=== PATIENT | female | born 1950 | race Caucasian/White ===

== ENCOUNTER 2017-04-21 11:48 | Emergency (ER) | payer MEDICARE ==
[~2017-04-21] VITALS: Ht 152.4 cm; Wt 85.5 kg
[2017-04-21 11:50] VITALS: Ht 152.4 cm; Wt 85.5 kg
[2017-04-21] MEDS ORDERED: TRAM50TA2 PO (12:16)
--- NOTE | 2017-04-21 13:38 | ERD ---
ER Documentation Chief Complaint Date/Time DATE: 04/21/17 TIME: 13:36 Chief Complaint right knee pain and left foot pain hx arthritis HPI Patient is a 66-year-old female with arthritis who presents with left-sided ankle pain and right-sided knee pain. She also has left-sided knee pain but the right is worse than the left. The patient is a history of arthritis and says that she has had this pain for "a long time". She has no treatment as of yet and no fevers. She said that she cannot take ibuprofen because it hurts her stomach. Upon review of old medical records this is the patient's first visit to the ER. She does not currently have a primary doctor. ROS All systems reviewed and are negative except as per history of present illness. Medications Home Meds Active Scripts Tramadol HCl (Tramadol HCl) 50 Mg Tablet, 50 MG PO Q6 Y for PAIN, #20 TAB Prov:ÁLVARO BOLAND MD 04/21/17 PMhx/Soc Medical and Surgical Hx: pt denies Medical Hx, pt denies Surgical Hx Hx Alcohol Use: No Hx Substance Use: No Hx Tobacco Use: No Smoking Status: Never smoker FmHx Family History: diabetes Physical Exam Vitals Vital Signs Date Time Temp Pulse Resp B/P Pulse Ox O2 Delivery O2 Flow Rate FiO2 04/21/17 11:50 100.0 104 18 120/72 94 Physical Exam Const: No acute distress Head: Atraumatic Eyes: Normal Conjunctiva ENT: Normal External Ears, Nose and Mouth. Neck: Full range of motion..~ No meningismus. Resp: Clear to auscultation bilaterally Cardio: Regular rate and rhythm, no murmurs Abd: Soft, non tender, non distended. Normal bowel sounds Skin: No petechiae or rashes Back: No midline or flank tenderness Ext: No cyanosis, or edema, no obvious joint effusions to the knees bilaterally, no obvious signs of fracture or dislocation Neur: Awake and alert Psych: Normal Mood and Affect Procedures/MDM Patient is a 66-year-old female who presents with what appears to be acute osteoarthritis. The patient has pain in her knees bilaterally and her left ankle. There is no sign of joint infection or gouty arthritis at this time. The patient will be discharged with prescription for tramadol for pain. She will be given information for Dr. Thacker from orthopedic surgery as she may benefit from knee replacement. She can return for any worsening symptoms. At this point I believe outpatient management is appropriate and she does not require further workup. Departure Diagnosis: Primary Impression: Arthritis Additional Impression: Knee pain Laterality: bilateral Chronicity: acute Qualified Code: M25.561 - Acute pain of both knees Condition: Fair Patient Instructions: What Is Arthritis? Referrals: [facility] () Usted se bobby hecho un examen mdico de control que le indica que no est en carrington condicin que requiera tratamiento urgente en el Departamento de Emergencia. Un estudio ms profundo y el tratamiento de lal condicin pueden esperar sin ningn riesgo hasta que usted sea atendida/o en el consultorio de lal mdico o carrington cl tapan. Es responsabilidad suya arreglar carrington beny para el seguimiento del geno. MANEJO DE CONDICIONES NO URGENTES EN EL FUTURO 1) Si usted tiene un mdico de atencin primaria: Usted debera llamar a lal mdico de atencin primaria antes de venir al departamento de emergencia. Despus de las horas de consultorio, lal doctor o lal asociado/a est disponible por telfono. El mdico o enfermero de lexi en el servicio telefnico puede asesorarle por natalio medio para atender el problema, o geno contrario se puede programar carrington beny. 2) Si usted no tiene un mdico de atencin primaria: Llame al mdico o clnica de referencia que aparece abajo bindu las horas de consultorio para hacer carrington beny para que le vean. CLINICAS: [facility] [phone] [facility] [phone] [facility] [phone] [facility] [phone] [facility] [phone] [facility] [phone] [address] Additional Instructions: Specialist:Usted tiene carrington condicin mdica que requiere que evelia a un especialista dentro de los prximos 1-2 lezama.POR FAVOR,CON LAL SEGUIMIENTO DE PRIMARIA PHSICIAN refferal. SI USTED NO TIENE UN MDICO GENERAL Y / O USTED NO PUEDE PAGAR neftali a un mdico,los siguientes munoz RECURSOS sido suministrado a usted. ES LAL RESPONSABILIDAD PARA SER VISTOS POR EL ESPECIALISTA: ÁLVARO BOLAND MD Apr 21, 2017 13:38
== END 2017-04-21 12:52 | disposition home or self-care (01) ==
LOC: FTE 11:48
DX: M19.90 Unspecified osteoarthritis, unspecified site (principal); M25.562 Pain in left knee
CPT/HCPCS: 99283